=== PATIENT | male | born 1950 | race Caucasian/White ===

== ENCOUNTER 2019-12-10 16:26 | Observation (INO) | payer MEDICARE, BC ==
[2019-12-10] MEDS ORDERED: Ketorolac 60 MG/2 ML SDV IVPUSH ONE (17:00)
[2019-12-10] MEDS ORDERED: Ketorolac 30 MG/ML SDV ONE (17:09)
[2019-12-10] MEDS ORDERED: Lactated Ringers 1,000 ML IV ONE (17:11)
[2019-12-10] MEDS ORDERED: HYDROmorphone 2 MG/ML SDV IVPUSH ONE (18:04)
[2019-12-10] MEDS ORDERED: Ondansetron 4 MG/2 ML SDV IVPUSH ONE (18:15)
[2019-12-10] MEDS ORDERED: HYDROmorphone 2 MG/ML SDV ONE (18:15)
[2019-12-10] MEDS ORDERED: Ondansetron 4 MG/2 ML SDV ONE (18:24)
--- NOTE | 2019-12-10 18:27 | EDM.PDOC ---
ED HPI GENERAL MEDICAL PROBLEM - General Chief Complaint: General Stated Complaint: STOMACH PAINS Time Seen by Provider: 12/10/19 16:55 Source of Information: Reports: Patient History Limitations: Reports: No Limitations - History of Present Illness INITIAL COMMENTS - FREE TEXT/NARRATIVE: Patient states onset periumbilical abdominal pain about 8 or 9 AM today states his pain is been ongoing describes it as sharp. Patient states he is regularly constipated but did have a bowel movement this morning. Patient denies any new changes in bowel or bladder habits. Patient denies nausea, vomiting, weakness, shortness of breath, chest pain, back pain dysuria, hematuria, pyuria. Patient did attempt to call his primary care provider in [place] but had not received any calls back today. Abdominal Pain Score (Numeric/FACES): 7 - Related Data Allergies Allergy/AdvReac Type Severity Reaction Status Date / Time Anesthetics - Amide Type Allergy Vomiting Verified 12/10/19 16:51 Home Meds: Home Meds Aspirin 81 mg PO DAILY 12/10/19 [History] Rosuvastatin [Crestor] 10 mg PO DAILY 12/10/19 [History] levETIRAcetam [Keppra] 500 mg PO BID 12/10/19 [History] ED ROS GENERAL - Review of Systems Review Of Systems: Comprehensive ROS is negative, except as noted in HPI. ED EXAM, GENERAL - Physical Exam Exam: See Below Exam Limited By: No Limitations General Appearance: Alert, WD/WN Eye Exam: Bilateral Eye: EOMI, PERRL Respiratory/Chest: No Respiratory Distress, Lungs Clear, Normal Breath Sounds, No Accessory Muscle Use Cardiovascular: Normal Peripheral Pulses, Regular Rate, Rhythm, No Edema, No Gallop, No Murmur Peripheral Pulses: 2+: Radial (L), Radial (R), Posterior Tibial (L), Posterior Tibial (R) GI/Abdominal: Normal Bowel Sounds, Soft, Tender (Periumbilical tenderness, left side greater than right) Extremities: Normal Inspection, Normal Range of Motion, Non-Tender, No Pedal Edema, Normal Capillary Refill Neurological: Alert, Oriented, CN II-XII Intact, Normal Cognition, Normal Gait Skin Exam: Warm, Dry, Intact Course - Vital Signs Last Recorded V/S: Last Vital Signs Temp 98.1 F 12/10/19 16:52 Pulse 85 12/10/19 16:52 Resp 18 12/10/19 16:52 BP 131/67 12/10/19 16:52 Pulse Ox 97 12/10/19 16:52 - Orders/Labs/Meds Orders: Active Orders 24 hr Category Date Time Status Abdomen Pelvis w Cont [CT] Stat Exams 12/10/19 18:16 Ordered Labs: Laboratory Tests 12/10/19 12/10/19 12/10/19 Range/Units 17:38 17:38 17:38 WBC 11.1 H (4.0-11.0) K/uL RBC 4.32 L (4.50-6.50) M/uL Hgb 13.8 (13.0-18.0) g/dL Hct 39.6 L (40.0-54.0) % MCV 92 (76-96) fL MCH 31.9 (27.0-32.0) pg MCHC 34.8 (31.0-35.0) g/dL RDW 12.6 (11.0-16.0) % Plt Count 200 (150-400) K/uL MPV 9.8 (6.0-10.0) fL Neut % (Auto) 80.2 H (45.0-70.0) % Lymph % (Auto) 9.9 L (20.0-40.0) % [place] % (Auto) 9.2 (3.0-10.0) % Eos % (Auto) 0.5 L (1.0-5.0) % Baso % (Auto) 0.2 (0.0-0.5) % Neut # (Auto) 8.87 H (2.00-7.50) K/uL Lymph # (Auto) 1.10 L (1.50-4.00) K/uL [place] # (Auto) 1.02 H (0.20-0.80) K/uL Eos # (Auto) 0.05 (0.04-0.40) K/uL Baso # (Auto) 0.02 (0.02-0.10) K/uL Sodium 132 L (136-145) mmol/L Potassium 4.0 (3.5-5.1) mmol/L Chloride 96 L (98-107) mmol/L Carbon Dioxide 26.5 (21.0-32.0) mmol/L Anion Gap 13.5 (5.0-15.0) mmol/L BUN 14 (8-26) mg/dL Creatinine 0.91 (0.70-1.30) mg/dL Est Cr Clr Drug Dosing 61.93 mL/min Estimated GFR (MDRD) > 60 (>60) MLS/MIN BUN/Creatinine Ratio 15.4 (6-25) Glucose 91 (74-100) mg/dL Calcium 8.6 (8.5-10.1) mg/dL Total Bilirubin 0.7 (0.0-1.0) mg/dL AST 18 (15-37) U/L ALT 26 (12-78) U/L Alkaline Phosphatase 46 (46-116) U/L C-Reactive Protein (0.0-3.0) mg/L Total Protein 6.4 (6.4-8.2) g/dL Albumin 3.6 (3.4-5.0) g/dL Globulin 2.8 (2.2-4.2) g/dL Albumin/Globulin Ratio 1.3 (0.8-2.0) Lipase (73-393) U/L Urine Color Yellow Urine Appearance Clear (CLEAR) Urine pH 6.0 (5.0-8.0) Ur Specific [place] >= 1.030 (1.003-1.030) Urine Protein Negative (NEGATIVE) mg/dL Urine Glucose (UA) Negative (NEGATIVE) mg/dL Urine Ketones 40 H (NEGATIVE) mg/dL Urine Occult Blood Negative (NEGATIVE) Urine Nitrite Negative (NEGATIVE) Urine Bilirubin Negative (NEGATIVE) Urine Urobilinogen 0.2 (0.2-1.0) E.U./dL Ur Leukocyte Esterase Negative (NEGATIVE) 12/10/19 Range/Units 17:38 WBC (4.0-11.0) K/uL RBC (4.50-6.50) M/uL Hgb (13.0-18.0) g/dL Hct (40.0-54.0) % MCV (76-96) fL MCH (27.0-32.0) pg MCHC (31.0-35.0) g/dL RDW (11.0-16.0) % Plt Count (150-400) K/uL MPV (6.0-10.0) fL Neut % (Auto) (45.0-70.0) % Lymph % (Auto) (20.0-40.0) % [place] % (Auto) (3.0-10.0) % Eos % (Auto) (1.0-5.0) % Baso % (Auto) (0.0-0.5) % Neut # (Auto) (2.00-7.50) K/uL Lymph # (Auto) (1.50-4.00) K/uL [place] # (Auto) (0.20-0.80) K/uL Eos # (Auto) (0.04-0.40) K/uL Baso # (Auto) (0.02-0.10) K/uL Sodium (136-145) mmol/L Potassium (3.5-5.1) mmol/L Chloride (98-107) mmol/L Carbon Dioxide (21.0-32.0) mmol/L Anion Gap (5.0-15.0) mmol/L BUN (8-26) mg/dL Creatinine (0.70-1.30) mg/dL Est Cr Clr Drug Dosing mL/min Estimated GFR (MDRD) (>60) MLS/MIN BUN/Creatinine Ratio (6-25) Glucose (74-100) mg/dL Calcium (8.5-10.1) mg/dL Total Bilirubin (0.0-1.0) mg/dL AST (15-37) U/L ALT (12-78) U/L Alkaline Phosphatase (46-116) U/L C-Reactive Protein 0.7 (0.0-3.0) mg/L Total Protein (6.4-8.2) g/dL Albumin (3.4-5.0) g/dL Globulin (2.2-4.2) g/dL Albumin/Globulin Ratio (0.8-2.0) Lipase 296 (73-393) U/L Urine Color Urine Appearance (CLEAR) Urine pH (5.0-8.0) Ur Specific [place] (1.003-1.030) Urine Protein (NEGATIVE) mg/dL Urine Glucose (UA) (NEGATIVE) mg/dL Urine Ketones (NEGATIVE) mg/dL Urine Occult Blood (NEGATIVE) Urine Nitrite (NEGATIVE) Urine Bilirubin (NEGATIVE) Urine Urobilinogen (0.2-1.0) E.U./dL Ur Leukocyte Esterase (NEGATIVE) Meds: Medications Discontinued Medications Generic Name Dose Route Start Last Admin Trade Name Abby PRN Reason Stop Dose Admin Hydromorphone HCl 1 mg 12/10/19 18:04 12/10/19 18:09 Dilaudid IVPUSH 12/10/19 18:05 1 mg ONETIME ONE Administration Hydromorphone HCl Confirm 12/10/19 18:15 Dilaudid Administered 12/10/19 18:16 Dose 2 mg .ROUTE .STK-MED ONE Lactated Ringer's 1,000 mls @ 999 mls/hr 12/10/19 17:11 12/10/19 17:10 Ringers, Lactated IV 12/10/19 18:11 999 mls/hr BOLUS ONE Administration Ketorolac Tromethamine Confirm 12/10/19 17:09 12/10/19 18:12 Toradol Administered 12/10/19 17:10 Not Given Dose 30 mg .ROUTE .STK-MED ONE Ketorolac Tromethamine 15 mg 12/10/19 17:00 12/10/19 17:35 Toradol IVPUSH 12/10/19 17:01 15 mg ONETIME ONE Administration Ondansetron HCl 4 mg 12/10/19 18:15 12/10/19 18:19 Zofran IVPUSH 12/10/19 18:16 4 mg ONETIME ONE Administration Ondansetron HCl Confirm 12/10/19 18:24 Zofran Administered 12/10/19 18:25 Dose 4 mg .ROUTE .STK-MED ONE Departure - Departure Time of Disposition: 18:00 Disposition: Still A Patient 30 Clinical Impression: Abdominal pain - Discharge Information Referrals: PCP,None [Primary Care Provider] - Sepsis Event Note (ED) - Evaluation Sepsis Screening Result: No Definite Risk - Focused Exam Vital Signs: Vital Signs Temp Pulse Resp BP Pulse Ox 12/10/19 16:52 98.1 F 85 18 131/67 97 - Assessment/Plan Plan: Handoff given to Harish Avitia at 1800 Laboratories pending at time of handoff are CRP, CMP, lipase, urinalysis No imaging at this time. Differential includes appendicitis, AAA, UTI, renal stones, pancreatitis.
[2019-12-10] MEDS ORDERED: Sodium Phosphate,Monobasic/Sodium Phosphate,Dibasic Enema 133 ML Bottle RECTAL ONE (19:43)
[2019-12-10] MEDS: Ondansetron 4 MG/2 ML SDV IVPUSH SCH (20:28)
[2019-12-10] MEDS: HYDROmorphone 4 MG/ML Syringe IVPUSH PRN (20:32)
[2019-12-10] MEDS: Sodium Chloride 0.9% 1,000 ML IV SCH (21:00)
--- NOTE | 2019-12-10 21:08 | ER ---
HISTORY OF PRESENT ILLNESS: A 69-year-old male who comes in with complaints of abdominal pain that started this morning after he woke up. It is in the inferior umbilical area/suprapubic area. The patient states it did cause him to vomit once. He has not had any falls or injuries. He thinks he may have a urinary tract infection. He has not noticed any blood in his urine or pain with voiding. The patient does not think he has been running a fever. He states he does have history of constipation. He has initially been evaluated by Silver Mendez NP and I am taking over after the initial tests have been started and he was given Toradol 15 mg IV for pain control, and IV fluids were started. OBJECTIVE: At this point, the patient is awake, he is complaining that the pain is still fairly significant at around 8/10. He is wondering if he needs something more for pain control. LABORATORY DATA: Labs are just starting to be available. CBC shows a white count slightly up at 11.1, neutrophils at 80.2. Labs involve comprehensive metabolic panel which is unremarkable and the UA just shows a small amount of ketonuria. INITIAL TREATMENT: At this time, Dilaudid 1 mg was given IV and this brought his pain down to about 5 or less. He states he can rest comfortably now. We then proceeded with a CT of the abdomen and pelvis which reveals multiple dilated loops of small bowel representing an obstruction or ileus. Distal small bowel is normal. There is some constipation in the colon, but the distal colon is decompressed. DIAGNOSES: 1. Small-bowel obstruction. 2. Constipation. TREATMENT PLAN: The patient will be admitted. He has only vomited once and this was after he ate breakfast. We will continue with the pain control. Keep the patient on some IV fluids. He will get Zofran once in the ER and this will be continued as an observation patient and bowel rest. We also will address the constipation as an inpatient and see how he does overnight. CRS/MODL /[id number]
--- NOTE | 2019-12-10 21:23 | ADMIT ---
This 69-year-old male was admitted through the emergency room with a small bowel obstruction and some issues with constipation. He will be given pain medications including Dilaudid p.r.n. and Toradol, bowel rest. We will not proceed with an NG tube right away, but we will be ready to do this if needed. The patient will be given Zofran as needed for nausea. IV fluids will be continued through the night and we will see how the patient does by morning. A Fleet enema will be tried as well to help with the constipation. The patient's vital signs in the ER have been okay. Temperature is 98.1, blood pressure 131/67, pulse 85, O2 sats 97% on room air, and respirations 18. The patient has surgical history of hernia repair in the abdomen that is the only surgery he has had involving the abdomen. CRS/MODL /[id number]
[2019-12-11] MEDS: HYDROmorphone 4 MG/ML Syringe IVPUSH PRN ×4 (01:47→22:20)
[2019-12-11] MEDS: Non-Formulary Medication 1 Each (Levetiracetam [Keppra] 500 MG) PO SCH ×2 (02:34→10:56)
[2019-12-11] MEDS: Ondansetron 4 MG/2 ML SDV IVPUSH SCH ×6 (02:44→22:19)
[2019-12-11] MEDS: Ketorolac 30 MG/ML SDV IVPUSH SCH ×4 (04:08→13:37)
[2019-12-11] MEDS: HYDROmorphone 2 MG/ML SDV ONE ×2 (04:27→06:59)
[2019-12-11] MEDS: Sodium Chloride 0.9% 1,000 ML IV SCH ×3 (06:19→21:21)
[2019-12-11] MEDS ORDERED: Non-Formulary Medication 1 Each (Aspirin [Aspirin] 81 MG) PO SCH (08:00)
[2019-12-11] MEDS ORDERED: Non-Formulary Medication 1 Each (Rosuvastatin [Crestor] 10 MG) PO SCH (08:00)
[2019-12-11] MEDS ORDERED: HYDROmorphone 2 MG/ML SDV ONE ×2 (09:01→21:25)
--- NOTE | 2019-12-11 09:23 | CR ---
DATE OF SERVICE: 12/11/19 CLINICAL DATA: small bowel obstruction and constipation. SUPINE AND UPRIGHT ABDOMEN: There is a NG tube in place with its distal tip in the stomach. There are cardiac pacer wires in place. There are multiple other tubes overlying the mediastinum and upper abdomen. There is a large amount of stool noted in the right colon. There are multiple loops of small bowel that are gas and fluid-filled and contain air-fluid levels consistent with small bowel obstruction or ileus. No free air. There is an oval-shaped hyperdense structure in the right upper abdomen which may be gallbladder containing hypodense bile. No other significant findings. [id number] MTDD
--- NOTE | 2019-12-11 09:27 | CT ---
DATE OF SERVICE: 12/10/19 CLINICAL DATA: Suprapubic Abd pain. ENHANCED ABDOMEN AND PELVIC CT: Multislice acquisition through the abdomen and pelvis with IV, but without oral contrast was performed. No priors. There are mild atelectatic changes in the dependent portion of both lower lungs. The lung bases are otherwise clear. The heart size is normal. There is a small hiatal hernia. There is mild diffuse fatty infiltration of the liver. No focal hepatic lesions. The gallbladder appears normal. No biliary duct dilatation The spleen appears normal. The pancreas appears normal. The right and left adrenals appear normal. The right and left kidneys appear normal and enhance symmetrically. No hydronephrosis or hydroureter. The bladder is partially fluid filled. It appears normal. No evidence of appendicitis. There is a large amount of stool noted throughout the colon. There are multiple fluid and gas filled loops of small bowel throughout the abdomen. They are distended. They do contain scattered air fluid levels. There is a transition zone within the mid ileum. The findings are consistent with a localized ileus or obstruction. There is a small amount of free fluid noted within the pelvis. No free air. No adenopathy. No aortic aneurysm or dissection. IMPRESSION: Findings consistent with obstruction or localized ileus. [id number] MTDD
[2019-12-11] MEDS: levETIRAcetam 500 MG in Sodium Chloride 0.9% 100 ML IV SCH ×2 (11:10→22:00)
[2019-12-12] MEDS: Sodium Chloride 0.9% 1,000 ML IV SCH (06:28)
--- NOTE | 2019-12-12 06:55 | PN ---
DATE OF VISIT: 12/11/2019 HISTORY OF PRESENT ILLNESS: He was admitted on 12/10/2019 for small-bowel obstruction. The patient rested fairly good through the night. He did require pain medications on 2 occasions. He is still having abdominal pain this morning that he rates at around a 5/10. He has been getting Dilaudid 1 mg or Toradol 15 mg q.6 hours p.r.n. He is n.p.o. and has an NG tube in with some drainage. PHYSICAL EXAMINATION: ABDOMEN: The abdomen this morning is mildly tender in the lower quadrants, more than the upper quadrants. Bowel sounds are present, but hypoactive. SKIN: Warm and dry. LUNGS: Clear. ASSESSMENT AND PLAN: We will continue to monitor the patient. I did consult with Dr. Molina, who recommend that as long as the patient's condition is not getting worse, monitoring for a couple of days would be reasonable to see if things get better. The patient does have issues with constipation as well. He was given a Fleet Enema the first evening he was here and will be given a soapsuds enema today. An x-ray of the abdomen reveals significant stool in the ascending colon and the patchy stool in the descending colon with multiple air-fluid levels and dilated bowel. CRS/MODL /[id number]
[2019-12-12] MEDS: Ondansetron 4 MG/2 ML SDV IVPUSH SCH ×2 (08:05→08:06)
[2019-12-12] MEDS: HYDROmorphone 4 MG/ML Syringe IVPUSH PRN ×2 (08:06→10:38)
[2019-12-12] MEDS ORDERED: HYDROmorphone 2 MG/ML SDV ONE ×2 (08:07→10:32)
[2019-12-12] MEDS: levETIRAcetam 500 MG in Sodium Chloride 0.9% 100 ML IV SCH (08:52)
--- NOTE | 2019-12-12 09:07 | PCM.PN ---
- General Info Date of Service: 12/12/19 Subjective Update: Patient has worsening lower abdominal pain at 7/10 which improved with medication to a 3-4/10. He notes some gas yesterday but nothing today. His NG tube is in proper placement but very minimal output 5mL of clear liquid. Patient has some epigastric burning and tenderness but no other health concerns. - Review of Systems General: Reports: No Symptoms HEENT: Reports: No Symptoms Pulmonary: Reports: No Symptoms Cardiovascular: Reports: No Symptoms Gastrointestinal: Reports: Abdominal Pain Genitourinary: Reports: No Symptoms Musculoskeletal: Reports: No Symptoms Skin: Reports: No Symptoms Neurological: Reports: No Symptoms - Patient Data Vitals - Most Recent: Last Vital Signs Temp 36.9 C 12/12/19 04:00 Pulse 77 12/12/19 04:00 Resp 16 12/12/19 04:00 BP 110/68 12/12/19 04:00 Pulse Ox 97 12/12/19 04:00 Weight - Most Recent: 60.056 kg I&O - Last 24 Hours: Intake & Output 12/11/19 12/12/19 12/12/19 22:59 06:59 14:59 Intake Total 150 Output Total 600 Balance -450 Lab Results Last 24 Hours: Laboratory Results - last 24 hr 12/12/19 12/12/19 Range/Units 07:30 07:30 WBC 11.0 (4.0-11.0) K/uL RBC 3.97 L (4.50-6.50) M/uL Hgb 12.7 L (13.0-18.0) g/dL Hct 37.6 L (40.0-54.0) % MCV 95 (76-96) fL MCH 32.0 (27.0-32.0) pg MCHC 33.8 (31.0-35.0) g/dL RDW 13.0 (11.0-16.0) % Plt Count 173 (150-400) K/uL MPV 10.1 H (6.0-10.0) fL Neut % (Auto) 80.1 H (45.0-70.0) % Lymph % (Auto) 8.6 L (20.0-40.0) % [place] % (Auto) 10.2 H (3.0-10.0) % Eos % (Auto) 0.9 L (1.0-5.0) % Baso % (Auto) 0.2 (0.0-0.5) % Neut # (Auto) 8.82 H (2.00-7.50) K/uL Lymph # (Auto) 0.95 L (1.50-4.00) K/uL [place] # (Auto) 1.12 H (0.20-0.80) K/uL Eos # (Auto) 0.10 (0.04-0.40) K/uL Baso # (Auto) 0.02 (0.02-0.10) K/uL Sodium 135 L (136-145) mmol/L Potassium 4.3 (3.5-5.1) mmol/L Chloride 101 (98-107) mmol/L Carbon Dioxide 24.0 (21.0-32.0) mmol/L Anion Gap 14.3 (5.0-15.0) mmol/L BUN 15 (8-26) mg/dL Creatinine 0.78 (0.70-1.30) mg/dL Est Cr Clr Drug Dosing 75.93 mL/min Estimated GFR (MDRD) > 60 (>60) MLS/MIN BUN/Creatinine Ratio 19.2 (6-25) Glucose 65 L (74-100) mg/dL Calcium 7.3 L (8.5-10.1) mg/dL Total Bilirubin 0.8 (0.0-1.0) mg/dL AST 18 (15-37) U/L ALT 19 (12-78) U/L Alkaline Phosphatase 33 L (46-116) U/L Total Protein 5.3 L (6.4-8.2) g/dL Albumin 2.7 L (3.4-5.0) g/dL Globulin 2.6 (2.2-4.2) g/dL Albumin/Globulin Ratio 1.0 (0.8-2.0) Med Orders - Current: Current Medications Hydromorphone HCl (Dilaudid) 1 mg IVPUSH Q6H PRN PRN Reason: Abdominal Pain Last Admin: 12/12/19 08:06 Dose: 1 mg Documented by: Sodium Chloride (Normal Saline) 1,000 mls @ 125 mls/hr IV ASDIRECTED [facility] Last Admin: 12/12/19 06:28 Dose: 125 mls/hr Documented by: Levetiracetam 500 mg/ Sodium (Chloride) 105 mls @ 300 mls/hr IV BID [facility] Last Admin: 12/12/19 08:52 Dose: 300 mls/hr Documented by: Ketorolac Tromethamine (Toradol) 15 mg IVPUSH Q6H [facility] Last Admin: 12/11/19 13:37 Dose: 15 mg Documented by: Non-Formulary Medication (Aspirin [Aspirin]) 81 mg PO DAILY [facility] Last Admin: 12/11/19 08:00 Dose: Not Given Documented by: Non-Formulary Medication (Levetiracetam [Keppra]) 500 mg PO BID [facility] Last Admin: 12/11/19 10:56 Dose: Not Given Documented by: Non-Formulary Medication (Rosuvastatin [Crestor]) 10 mg PO DAILY [facility] Last Admin: 12/11/19 08:00 Dose: Not Given Documented by: Ondansetron HCl (Zofran) 4 mg IVPUSH Q4H [facility] Last Admin: 12/12/19 08:06 Dose: 4 mg Documented by: Discontinued Medications Hydromorphone HCl (Dilaudid) 1 mg IVPUSH ONETIME ONE Stop: 12/10/19 18:05 Last Admin: 12/10/19 18:09 Dose: 1 mg Documented by: Hydromorphone HCl (Dilaudid) Confirm Administered Dose 2 mg .ROUTE .STK-MED ONE Stop: 12/10/19 18:16 Last Admin: 12/10/19 18:35 Dose: Not Given Documented by: Hydromorphone HCl (Dilaudid) Confirm Administered Dose 2 mg .ROUTE .STK-MED ONE Stop: 12/11/19 04:12 Last Admin: 12/11/19 06:59 Dose: Not Given Documented by: Hydromorphone HCl (Dilaudid) Confirm Administered Dose 2 mg .ROUTE .STK-MED ONE Stop: 12/11/19 09:02 Last Admin: 12/11/19 10:24 Dose: Not Given Documented by: Hydromorphone HCl (Dilaudid) Confirm Administered Dose 2 mg .ROUTE .STK-MED ONE Stop: 12/11/19 21:26 Last Admin: 12/11/19 22:22 Dose: Not Given Documented by: Hydromorphone HCl (Dilaudid) Confirm Administered Dose 2 mg .ROUTE .STK-MED ONE Stop: 12/12/19 08:08 Lactated Ringer's (Ringers, Lactated) 1,000 mls @ 999 mls/hr IV BOLUS ONE Stop: 12/10/19 18:11 Last Admin: 12/10/19 17:10 Dose: 999 mls/hr Documented by: Ketorolac Tromethamine (Toradol) Confirm Administered Dose 30 mg .ROUTE .STK-MED ONE Stop: 12/10/19 17:10 Last Admin: 12/10/19 18:12 Dose: Not Given Documented by: Ketorolac Tromethamine (Toradol) 15 mg IVPUSH ONETIME ONE Stop: 12/10/19 17:01 Last Admin: 12/10/19 17:35 Dose: 15 mg Documented by: Ondansetron HCl (Zofran) 4 mg IVPUSH ONETIME ONE Stop: 12/10/19 18:16 Last Admin: 12/10/19 18:19 Dose: 4 mg Documented by: Ondansetron HCl (Zofran) Confirm Administered Dose 4 mg .ROUTE .STK-MED ONE Stop: 12/10/19 18:25 Last Admin: 12/10/19 18:40 Dose: Not Given Documented by: Sodium Biphosphate/Sodium Phosphate (Fleet Enema) 133 ml RECTAL ONETIME ONE Stop: 12/10/19 19:44 Last Admin: 12/10/19 20:26 Dose: 1 applic Documented by: - Exam General: Alert, Oriented, Cooperative HEENT: Pupils Equal, Pupils Reactive, EOMI Neck: Supple Lungs: Clear to Auscultation, Normal Respiratory Effort Cardiovascular: Regular Rate, Regular Rhythm GI/Abdominal Exam: Abnormal Bowel Sounds (hyperactive RLQ and inactive LLQ, decreased LUQ) Back Exam: Normal Inspection Sepsis Event Note - Evaluation Sepsis Screening Result: No Definite Risk - Focused Exam Vital Signs: Vital Signs Temp Pulse Resp BP Pulse Ox 12/12/19 04:00 36.9 C 77 16 110/68 97 12/12/19 00:00 36.3 C 84 18 114/65 98 Date Exam was Performed: 12/12/19 Time Exam was Performed: 09:02 - Problem List & Annotations (1) Small bowel obstruction SNOMED Code(s): 908109321 Code(s): K56.609 - UNSP INTESTNL OBST, UNSP TO PARTIAL VERSUS COMPLETE OBST Status: Acute Priority: High Current Visit: Yes (2) Abdominal pain SNOMED Code(s): 68228391 Code(s): R10.9 - UNSPECIFIED ABDOMINAL PAIN Status: Acute Priority: High Current Visit: Yes Qualifiers: Abdominal location: lower abdomen, unspecified Qualified Code(s): R10.30 - Lower abdominal pain, unspecified - Problem List Review Problem List Initiated/Reviewed/Updated: Yes - Plan Plan:: Consulted general surgery Dr. Gomez and discussed plan for transfer with Dr. Morelos. Patient imaging sent via PACS to [place]. Discussed plan of care with Rachel() at [phone]. Counseled patient due to worsening symptoms of abdominal discomfort and still no resolution or improvement of symptoms in 48 hours of NPO and monitoring/management that he will require a surgical consult. Patient and are in agreement with this plan. Pending bed availability at this time.
--- NOTE | 2019-12-12 09:44 | CR ---
DATE OF SERVICE: 12/12/19 CLINICAL DATA: Bowel obstruction - constipation. SUPINE AND UPRIGHT ABDOMEN: The NG tube has changed in position. It's distal tip is just below the esophageal hiatus. The side port is located at the level of the distal esophagus. There are persistent gas-filled distended loops of small bowel containing air- fluid levels consistent with an obstruction. No free air. [id number] [facility]
--- NOTE | 2019-12-13 14:55 | PCM.DCSUM1 ---
Discharge Summary - Discharge Data Discharge Date: 12/12/19 Discharge Disposition: DC/Tfer to Acute Hospital 02 Condition: Fair - Referral to Home Health Primary Care Physician: PCP None - Discharge Diagnosis/Problem(s) (1) Small bowel obstruction SNOMED Code(s): 162158141 ICD Code: K56.609 - UNSP INTESTNL OBST, UNSP TO PARTIAL VERSUS COMPLETE OBST Status: Acute Priority: High (2) Abdominal pain SNOMED Code(s): 35170112 ICD Code: R10.9 - UNSPECIFIED ABDOMINAL PAIN Status: Acute Priority: High Qualifiers: Abdominal location: lower abdomen, unspecified Qualified Code(s): R10.30 - Lower abdominal pain, unspecified - Discharge Plan Home Medications: Home Meds Aspirin 81 mg PO DAILY 12/10/19 [History] Rosuvastatin [Crestor] 10 mg PO DAILY 12/10/19 [History] levETIRAcetam [Keppra] 500 mg PO BID 12/10/19 [History] Patient Handouts: Abdominal Pain, Adult Forms: ED Department Discharge Referrals: PCP,None [Primary Care Provider] - - Discharge Summary/Plan Comment DC Time >30 min.: Yes Discharge Summary/Plan Comment: Counseled on transfer for surgical consult due to continued small bowel obstruction and increasing pain over the past 48hrs while being NPO and having an NG tube. Patient and agree with plan of care and transfer. - General Info Date of Service: 12/12/19 - Review of Systems General: Reports: No Symptoms HEENT: Reports: No Symptoms Pulmonary: Reports: No Symptoms Cardiovascular: Reports: No Symptoms Gastrointestinal: Reports: Abdominal Pain, Nausea Genitourinary: Reports: No Symptoms Musculoskeletal: Reports: No Symptoms - Patient Data Vitals - Most Recent: Last Vital Signs Temp 36.7 C 12/12/19 09:47 Pulse 92 12/12/19 09:47 Resp 16 12/12/19 09:47 BP 116/63 12/12/19 09:47 Pulse Ox 97 12/12/19 09:47 Weight - Most Recent: 60.056 kg SYDNIE Results - Last 24 hrs: Microbiology 12/12/19 06:00 MRSA Surveillance Culture - Final Nares, Unspecified NO MRSA ISOLATED Med Orders - Current: Current Medications Discontinued Medications Hydromorphone HCl (Dilaudid) 1 mg IVPUSH ONETIME ONE Stop: 12/10/19 18:05 Last Admin: 12/10/19 18:09 Dose: 1 mg Documented by: Hydromorphone HCl (Dilaudid) Confirm Administered Dose 2 mg .ROUTE .STK-MED ONE Stop: 12/10/19 18:16 Last Admin: 12/10/19 18:35 Dose: Not Given Documented by: Hydromorphone HCl (Dilaudid) 1 mg IVPUSH Q6H PRN PRN Reason: Abdominal Pain Last Admin: 12/12/19 10:38 Dose: 1 mg Documented by: Hydromorphone HCl (Dilaudid) Confirm Administered Dose 2 mg .ROUTE .STK-MED ONE Stop: 12/11/19 04:12 Last Admin: 12/11/19 06:59 Dose: Not Given Documented by: Hydromorphone HCl (Dilaudid) Confirm Administered Dose 2 mg .ROUTE .STK-MED ONE Stop: 12/11/19 09:02 Last Admin: 12/11/19 10:24 Dose: Not Given Documented by: Hydromorphone HCl (Dilaudid) Confirm Administered Dose 2 mg .ROUTE .STK-MED ONE Stop: 12/11/19 21:26 Last Admin: 12/11/19 22:22 Dose: Not Given Documented by: Hydromorphone HCl (Dilaudid) Confirm Administered Dose 2 mg .ROUTE .STK-MED ONE Stop: 12/12/19 08:08 Hydromorphone HCl (Dilaudid) Confirm Administered Dose 2 mg .ROUTE .STK-MED ONE Stop: 12/12/19 10:33 Lactated Ringer's (Ringers, Lactated) 1,000 mls @ 999 mls/hr IV BOLUS ONE Stop: 12/10/19 18:11 Last Admin: 12/10/19 17:10 Dose: 999 mls/hr Documented by: Sodium Chloride (Normal Saline) 1,000 mls @ 125 mls/hr IV ASDIRECTED RAHEEL Last Admin: 12/12/19 06:28 Dose: 125 mls/hr Documented by: Levetiracetam 500 mg/ Sodium (Chloride) 105 mls @ 300 mls/hr IV BID RAHEEL Last Admin: 12/12/19 08:52 Dose: 300 mls/hr Documented by: Ketorolac Tromethamine (Toradol) Confirm Administered Dose 30 mg .ROUTE .STK-MED ONE Stop: 12/10/19 17:10 Last Admin: 12/10/19 18:12 Dose: Not Given Documented by: Ketorolac Tromethamine (Toradol) 15 mg IVPUSH ONETIME ONE Stop: 12/10/19 17:01 Last Admin: 12/10/19 17:35 Dose: 15 mg Documented by: Ketorolac Tromethamine (Toradol) 15 mg IVPUSH Q6H [facility] Last Admin: 12/11/19 13:37 Dose: 15 mg Documented by: Non-Formulary Medication (Aspirin [Aspirin]) 81 mg PO DAILY [facility] Last Admin: 12/11/19 08:00 Dose: Not Given Documented by: Non-Formulary Medication (Levetiracetam [Keppra]) 500 mg PO BID [facility] Last Admin: 12/11/19 10:56 Dose: Not Given Documented by: Non-Formulary Medication (Rosuvastatin [Crestor]) 10 mg PO DAILY [facility] Last Admin: 12/11/19 08:00 Dose: Not Given Documented by: Ondansetron HCl (Zofran) 4 mg IVPUSH ONETIME ONE Stop: 12/10/19 18:16 Last Admin: 12/10/19 18:19 Dose: 4 mg Documented by: Ondansetron HCl (Zofran) Confirm Administered Dose 4 mg .ROUTE .STK-MED ONE Stop: 12/10/19 18:25 Last Admin: 12/10/19 18:40 Dose: Not Given Documented by: Ondansetron HCl (Zofran) 4 mg IVPUSH Q4H [facility] Last Admin: 12/12/19 08:06 Dose: 4 mg Documented by: Sodium Biphosphate/Sodium Phosphate (Fleet Enema) 133 ml RECTAL ONETIME ONE Stop: 12/10/19 19:44 Last Admin: 12/10/19 20:26 Dose: 1 applic Documented by: - Exam General: Reports: Alert, Oriented, Cooperative HEENT: Reports: Pupils Equal, Pupils Reactive, EOMI Neck: Reports: Supple Lungs: Reports: Clear to Auscultation, Normal Respiratory Effort Cardiovascular: Reports: Regular Rate, Regular Rhythm GI/Abdominal Exam: Tender, Abnormal Bowel Sounds Back Exam: Reports: Normal Inspection Extremities: Normal Inspection
== END 2019-12-12 11:05 ==
LOC: LB.ED 16:26 → LB.MS 19:26 → UNDOADMOB 19:58
PROVIDERS: ADMIT Physician Assistant; ATTEND Physician Assistant
DX: K56.609 Unspecified intestinal obstruction, unspecified as to partial versus complete obstruction (principal); K59.00 Constipation, unspecified; Z88.8 Allergy status to other drugs, medicaments and biological substances; Z79.82 Long term (current) use of aspirin; Z79.899 Other long term (current) drug therapy
CPT/HCPCS: 36415; 74018; 74019; 74177; 80053; 81003; 83690; 85025; 86140; 96374; 96375; 99285; A0425; A0429; A9270; J1170; J1885; J1953; J2405; J7030; J7050; J7120; 96361; 96365; 96366; 96376; G0378